=== PATIENT | male | born 1990 | race African-American/Black ===

== ENCOUNTER 2017-05-11 20:42 | Emergency (ER) | payer OTHER, SELFPAY ==
[2017-05-11 21:15] LABS: APPEARANCE, URINE CLEAR (CLEAR); BACTERIA, URINE AUTO NEGATIVE (NEGATIVE); BILIRUBIN, URINE AUTO NEGATIVE (NEGATIVE); BLOOD, URINE BLOOD NEGATIVE (NEGATIVE); COLOR, URINE YELLOW (YELLOW); GLUCOSE, URINE (UA) AUTO NEGATIVE (NEGATIVE); KETONE, URINE AUTO NEGATIVE (NEGATIVE); LEUKOCYTE ESTERASE, URINE AUTO TRACE (NEGATIVE); NITRITE, URINE AUTO NEGATIVE (NEGATIVE); PROTEIN, URINE AUTO NEGATIVE (NEGATIVE); RBC, URINE AUTO 2 /HPF (0-3); SPECIFIC GRAVITY URINE AUTO 1.019 (1.002-1.035); SQUAMOUS EPITHELIAL CELL UR AU 0 /HPF (0-6); UROBILINOGEN, URINE AUTO 0.2 mg/dL (0.0-2.0); WBC, URINE AUTO 4 /HPF (0-3)
[2017-05-11] MEDS: AZITHROMYCIN 250 MG TAB PO ×2 (21:57)
[2017-05-11] MEDS: cefTRIAXone SOD 250 MG VIAL (J0696) IM ×2 (21:58)
[2017-05-12 00:12] LABS: CHLAMYDIA DNA AMPLIFICATION NEGATIVE (NEGATIVE); GC DNA AMPLIFICATION POSITIVE (NEGATIVE)
== END 2017-05-11 22:21 | disposition home or self-care (01) ==
LOC: M ED 20:42
DX: N34.2 Other urethritis (principal); F17.200 Nicotine dependence, unspecified, uncomplicated
CPT/HCPCS: J0696